=== PATIENT | female | born 1940 | race Caucasian/White ===

== ENCOUNTER 2022-03-24 12:08 | Inpatient (IN) | payer MEDICARE ==
[~2022-03-24] VITALS: Ht 165.1 cm; Wt 56.7 kg
[2022-03-24] MEDS ORDERED: SODIUM CHLORIDE 0.9% 1000ML 1,000 ML IV STA (14:06)
[2022-03-24] MEDS ORDERED: DIGOXIN INJ 0.25 MG/ML 2 ML AMP IV ONE ×2 (14:15→16:45)
[2022-03-24 14:37] LABS: BASOPHILS % 0.5 % (0.0-1.0); HEMATOCRIT 42.9 % (34.2-44.1); HEMOGLOBIN 13.9 g/dL (12.0-16.0); LYMPHOCYTES # (AUTO) 0.6 (1.0-3.2); MEAN CORPUSCULAR HGB CONC 32.4 g/dL (31-35); MEAN CORPUSCULAR VOLUME 92.7 fL (81-99); MONOCYTES # (AUTO) 0.3 (0.2-0.8); MONOCYTES % 5.8 % (4.4-11.3); NEUTROPHILS # (AUTO) 4.9 (2.1-6.9); PLATELET COUNT 144 x10e3/uL (140-360); RED BLOOD COUNT 4.63 x10e6/uL (3.6-5.1); RED CELL DISTRIBUTION WIDTH 12.1 % (11.7-14.4)
[2022-03-24 14:45] LABS: CLARITY,URINE CLOUDY (CLEAR); COLOR,URINE YELLOW (YELLOW)
[2022-03-24 14:46] LABS: INR 0.97; KETONES,URINE 1+ (NEGATIVE); LEUKOCYTE ESTERASE ,URINE TRACE (NEGATIVE); NITRITE,URINE POSITIVE (NEGATIVE); PROTEIN,URINE DIPSTICK >=300 (NEGATIVE); PROTHROMBIN TIME 13.1 seconds (11.9-14.5); URINE UROBILINOGEN 1 mg/dL (0.2 - 1)
[2022-03-24 14:47] LABS: BACTERIA,URINE MANY /HPF; EPITHELIAL CELLS,URINE FEW /LPF; PARTIAL THROMBOPLASTIN TIME 33.3 seconds (23.8-35.5); RBC,URINE 0-5 /HPF (0-5)
[2022-03-24 14:54] LABS: ALBUMIN 3.6 g/dL (3.5-5.0); ALBUMIN/GLOBULIN RATIO 0.9 (0.8-2.0); CALCIUM 9.5 mg/dL (8.4-10.2); CREATININE, SERUM 1.12 mg/dL (0.57-1.11); MAGNESIUM 1.9 MG/DL (1.3-2.1)
[2022-03-24] MEDS ORDERED: DILTIAZEM HCL 5 MG/ML 5 ML VIAL IV ONE (15:23)
[2022-03-24] MEDS ORDERED: DILTIAZEM HCL 30 MG TAB PO ONE (15:30)
[2022-03-24] MEDS ORDERED: IOPAMIDOL 370 MG/ML 100 ML INFUS..BTL INJ ONE (16:00)
[2022-03-24] MEDS ORDERED: ENOXAPARIN SOD INJ 60 MG/0.6 ML SYR SC SCH (16:00)
[2022-03-24] MEDS ORDERED: DILTIAZEM HCL 5 MG/ML 5 ML VIAL IV STA (16:31)
[2022-03-24] MEDS ORDERED: DILTIAZEM HCL VIAL 5 ML ONE (16:50)
[2022-03-24] MEDS: ENOXAPARIN SOD INJ 40 MG/0.4 ML SYR SC SCH (16:50)
[2022-03-24] MEDS ORDERED: DILTIAZEM HCL CR 120MG TAB PO ONE (18:15)
[2022-03-24] MEDS: BENZONATATE 100 MG CAP PO PRN (18:38)
[2022-03-24] MEDS: ONDANSETRON HCL INJ 2MG/ML 2ML 2 MG/ML VIAL IV PRN ×2 (19:22→21:36)
[2022-03-24] MEDS ORDERED: SODIUM CHLORIDE 0.9% 250ML 250 ML ONE (21:38)
[2022-03-24 21:41] VITALS: BP 134/93
[2022-03-24 22:09] VITALS: BP 134/93
[2022-03-24 22:48] VITALS: BP 142/74
[2022-03-24 23:15] LABS: CREATINE KINASE MB 2.7 ng/mL (0-5.0)
[2022-03-25] VITALS (8 sets, daily range): BP systolic 17–127; BP diastolic 57–71
[2022-03-25 05:59] LABS: BASOPHILS % 0.4 % (0.0-1.0); HEMATOCRIT 36.5 % (34.2-44.1); HEMOGLOBIN 11.9 g/dL (12.0-16.0); LYMPHOCYTES # (AUTO) 0.6 (1.0-3.2); LYMPHOCYTES % 13.3 % (18.0-39.1); MEAN CORPUSCULAR HEMOGLOBIN 30.2 pg (28-32); MEAN CORPUSCULAR HGB CONC 32.6 g/dL (31-35); MEAN CORPUSCULAR VOLUME 92.6 fL (81-99); MONOCYTES # (AUTO) 0.3 (0.2-0.8); MONOCYTES % 5.4 % (4.4-11.3); NEUTROPHILS # (AUTO) 3.9 (2.1-6.9); NEUTROPHILS % 80.3 % (38.7-80.0); PLATELET COUNT 101 x10e3/uL (140-360); RED BLOOD COUNT 3.94 x10e6/uL (3.6-5.1); RED CELL DISTRIBUTION WIDTH 11.9 % (11.7-14.4)
[2022-03-25 06:18] LABS: ANION GAP 12.8 mmol/L (8-16); CALCIUM 8.6 mg/dL (8.4-10.2); CHOL/HDL RATIO 5.2 (3.0-3.6); CREATININE, SERUM 0.87 mg/dL (0.57-1.11); POTASSIUM 3.8 mmol/L (3.5-5.1)
[2022-03-25 06:40] LABS: CREATINE KINASE MB 1.9 ng/mL (0-5.0)
[2022-03-25] MEDS ORDERED: ACETAMINOPHEN 325 MG TAB PO PRN (08:15)
[2022-03-25] MEDS: BENZONATATE 100 MG CAP PO PRN (11:16)
[2022-03-25] MEDS: DILTIAZEM HCL CR 120MG TAB PO SCH (11:16)
[2022-03-25] MEDS ORDERED: ALBUTEROL/IPRATROPIUM 3 ML NEB NEB PRN (12:00)
[2022-03-25 15:10] LABS: CREATINE KINASE MB 2.6 ng/mL (0-5.0)
[2022-03-25] MEDS: ENOXAPARIN SOD INJ 40 MG/0.4 ML SYR SC SCH (16:34)
[2022-03-25] MEDS: IPRATROPIUM BROMIDE 0.02% 2.5 ML NEB NEB SCH (20:10)
[2022-03-25] MEDS: GUAIFENESIN/CODEINE 5 ML LIQD PO PRN (20:15)
[2022-03-26] VITALS (7 sets, daily range): BP systolic 99–120; BP diastolic 48–61
[2022-03-26 04:52] LABS: BASOPHILS % 0.4 % (0.0-1.0); HEMATOCRIT 32.6 % (34.2-44.1); HEMOGLOBIN 11.7 g/dL (12.0-16.0); LYMPHOCYTES % 20.7 % (18.0-39.1); MEAN CORPUSCULAR HEMOGLOBIN 30.5 pg (28-32); MEAN CORPUSCULAR HGB CONC 35.9 g/dL (31-35); MEAN CORPUSCULAR VOLUME 84.9 fL (81-99); MONOCYTES # (AUTO) 0.3 (0.2-0.8); MONOCYTES % 6.3 % (4.4-11.3); NEUTROPHILS # (AUTO) 3.5 (2.1-6.9); NEUTROPHILS % 71.4 % (38.7-80.0); PLATELET COUNT 101 x10e3/uL (140-360); RED BLOOD COUNT 3.84 x10e6/uL (3.6-5.1); RED CELL DISTRIBUTION WIDTH 12.2 % (11.7-14.4)
[2022-03-26 05:10] LABS: ALBUMIN 2.7 g/dL (3.5-5.0); ALBUMIN/GLOBULIN RATIO 0.9 (0.8-2.0); ANION GAP 12.5 mmol/L (8-16); CREATININE, SERUM 0.77 mg/dL (0.57-1.11); POTASSIUM 3.5 mmol/L (3.5-5.1)
[2022-03-26 07:11] LABS: BAND NEUTROPHILS % (MANUAL) 3 %; LYMPHOCYTES % (MANUAL) 19 % (19-48); METAMYELOCYTES % (MANUAL) 1 % (0-0); MONOCYTES % (MANUAL) 3 % (3.4-9.0); NEUTROPHILS % (MANUAL) 71 % (40-74)
[2022-03-26 07:12] LABS: PLATELET ESTIMATE SLIGHTLY DECREASED; PLATELET MORPHOLOGY COMMENT NORMAL; RBC MORPHOLOGY COMMENT NORMAL
[2022-03-26] MEDS: IPRATROPIUM BROMIDE 0.02% 2.5 ML NEB NEB SCH (07:30)
[2022-03-26] MEDS: DILTIAZEM HCL CR 120MG TAB PO SCH (08:21)
[2022-03-26] MEDS ORDERED: LEVALBUTEROL HCL SOLN NEBU 0.63 MG/3 ML NEB INH PRN (09:30)
[2022-03-26] MEDS ORDERED: SALIVA SUBSTITUTE 45 ML LIQD MM PRN (09:30)
[2022-03-26] MEDS: GUAIFENESIN/CODEINE 5 ML LIQD PO PRN ×2 (15:00→20:54)
[2022-03-26] MEDS: ENOXAPARIN SOD INJ 40 MG/0.4 ML SYR SC SCH (17:14)
[2022-03-27] VITALS: BP 106/50
[2022-03-27 04:00] VITALS: BP 112/74
[2022-03-27 05:11] LABS: ANION GAP 11.4 mmol/L (8-16); CALCIUM 8.1 mg/dL (8.4-10.2); CREATININE, SERUM 0.67 mg/dL (0.57-1.11); POTASSIUM 3.4 mmol/L (3.5-5.1)
[2022-03-27] MEDS: DILTIAZEM HCL CR 120MG TAB PO SCH (09:00)
[2022-03-27 09:30] VITALS: BP 96/54
[2022-03-27 09:48] VITALS: BP 96/54
[2022-03-27] MEDS ORDERED: POTASSIUM BICARBONATE/CIT AC 20 MEQ TABLET.EFF PO ONE (10:30)
[2022-03-27] MEDS ORDERED: LEVOFLOXACIN250 MG PO (11:17)
[2022-03-27] MEDS ORDERED: PROVENTIL HFA6.7 GM INH (11:17)
[2022-03-27] MEDS ORDERED: BENZONATATE100 MG PO (11:17)
[2022-03-27] MEDS ORDERED: ACIDOPHILUS1 EAC1 PO (11:17)
[2022-03-27 12:11] VITALS: BP 92/59
[2022-03-27] MEDS ORDERED: SODIUM CHLORIDE 0.9% 1000ML 500 ML IV ONE (12:45)
[2022-03-27] MEDS ORDERED: ONDANSETRON HCL 4 MG ORAL DISINTEGRATING TAB PO PRN (12:45)
[2022-03-27] MEDS ORDERED: SODIUM CHLORIDE 0.9% 500ML 500 ML ONE (12:58)
[2022-03-27] MEDS ORDERED: AZITHROMYCIN 250 MG TAB PO SCH (20:00)
== END 2022-03-27 14:33 | disposition home or self-care (01) | DRG 308 ==
LOC: ER 12:29 → INTOOBSV 16:32 → ERHOLD 16:32 → MED/SURG 19:57 → OBSVTOIN 03-25 16:14
PROVIDERS: ADMIT Internal Medicine; ATTEND Internal Medicine
DX: I48.0 Paroxysmal atrial fibrillation (principal); J18.9 Pneumonia, unspecified organism; E87.1 Hypo-osmolality and hyponatremia; N39.0 Urinary tract infection, site not specified; N17.9 Acute kidney failure, unspecified; R91.8 Other nonspecific abnormal finding of lung field; R00.0 Tachycardia, unspecified; I08.3 Combined rheumatic disorders of mitral, aortic and tricuspid valves; E87.8 Other disorders of electrolyte and fluid balance, not elsewhere classified; R79.89 Other specified abnormal findings of blood chemistry; R63.4 Abnormal weight loss; I95.9 Hypotension, unspecified; B96.20 Unspecified Escherichia coli [E. coli] as the cause of diseases classified elsewhere; R53.81 Other malaise; R05.9 Cough, unspecified; R74.8 Abnormal levels of other serum enzymes; E86.0 Dehydration; Z98.890 Other specified postprocedural states; Z85.89 Personal history of malignant neoplasm of other organs and systems; Z82.3 Family history of stroke; Z90.710 Acquired absence of both cervix and uterus; Z68.20 Body mass index [BMI] 20.0-20.9, adult
CPT/HCPCS: 36415; 71045; 71260; 80048; 80053; 80061; 81001; 82550; 82553; 83605; 83735; 83880; 84443; 84484; 85025; 85379; 85610; 85730; 87040; 87070; 87086; 87186; 87205; 93005; 93306; 94640; 94799; 99252; 99284; G0378; J0456; J0696; J1160; J1650; J2405; J7030; J7040; J7050; Q9967